=== PATIENT | male | born 1940 | race Caucasian/White ===

== ENCOUNTER 2018-11-26 17:45 | Emergency (ER) | payer OTHER ==
[~2018-11-26] VITALS: Wt 70.1 kg
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
[2018-11-26] MEDS ORDERED: ACET500C5 PO (22:12)
[2018-11-26 22:28] VITALS: BP 133/60; PULSE 80; RESP 19
== END 2018-11-26 22:29 | disposition home or self-care (01) ==
LOC: FTE 17:45
DX: M25.532 Pain in left wrist (principal); I10 Essential (primary) hypertension; E11.9 Type 2 diabetes mellitus without complications; R93.0 Abnormal findings on diagnostic imaging of skull and head, not elsewhere classified
CPT/HCPCS: 70450; 72050; 73030